=== PATIENT | male | born 1975 | race Caucasian/White ===

== ENCOUNTER 2019-03-19 15:02 | Emergency (ER) | payer BC ==
[~2019-03-19] VITALS: Ht 175.3 cm; Wt 81.6 kg
--- NOTE | 2019-03-19 15:28 | NUR ---
PT [id number]. SENT BY A FAMILY FRIEND TO THE ER, TO EVALUATE - ACUTE LEFT CALF PAIN, , POSSIBLE DVT; 9+ RECENT TRAVEL - TRAVEL 2 X LAST CATHERINE BY PLANE. VSS. Awaiting MD for eval.
--- NOTE | 2019-03-19 15:35 | NUR ---
PT BROUGHT TO ANOTHER ROOM FOR DUPLEX VENOUS.
[2019-03-19 16:16] VITALS: BP 132/82
--- NOTE | 2019-03-19 16:16 | NUR ---
Patient discharged to home in stable condition. Written and verbal after care instructions given. Patient verbalizes understanding of instruction. Pt was informed the test was negative. pt ambulatory with a steady gait.
== END 2019-03-19 16:17 | disposition home or self-care (01) ==
LOC: ER 15:03
DX: M79.10 Myalgia, unspecified site (principal); J45.909 Unspecified asthma, uncomplicated; M79.661 Pain in right lower leg; M79.662 Pain in left lower leg
CPT/HCPCS: 93970-TC